=== PATIENT | female | born 1990 | race Caucasian/White ===

== ENCOUNTER 2018-06-10 11:11 | Emergency (ER) | payer OTHER ==
[~2018-06-10] VITALS: Ht 162.6 cm; Wt 55.8 kg
[~2018-06-10 11:11] MED LIST: BUDEPRION SR150 MG; CARBAMAZEPINE100 MG; FAMOTIDINE PO; HYDROXYZINE HCL25 M1 PO; LOESTRIN 24 FE1 EACH; LOXAPINE5 MG PO; PREDNISONE50 MG PO
[2018-06-10 11:33] LABS: URINE BILIRUBIN NEGATIVE (Negative); URINE BLOOD TRACE (Negative); URINE CLARITY CLEAR; URINE COLOR YELLOW; URINE GLUCOSE-RANDOM NEGATIVE (Negative); URINE KETONES NEGATIVE (Negative); URINE LEUKOCYTES-REFLEX NEGATIVE (Negative); URINE NITRITE-REFLEX NEGATIVE (Negative); URINE PROTEIN NEGATIVE (Negative); URINE SPECIFIC GRAVITY <= 1.005 (1.005-1.030); URINE UROBILINOGEN 0.2 E.U./dl (0.2-1.0)
[2018-06-10 11:41] LABS: AMP/METHAMP Negative (Negative); BARBITURATES Negative (Negative); BENZODIAZEPINES Negative (Negative); COCAINE Negative (Negative); METHADONE Negative (Negative); OPIATES Negative (Negative); PCP Negative (Negative); THC Negative (Negative)
[2018-06-10 11:51] LABS: ABSOLUTE BASOPHILS 0.1 thou/uL (0.0-0.2); ABSOLUTE EOSINOPHILS 0.1 thou/uL (0.0-0.7); ABSOLUTE LYMPHOCYTES 1.5 thou/uL (0.8-5.3); ABSOLUTE MONOCYTES 0.4 thou/uL (0.0-1.2); ABSOLUTE NEUTROPHILS 6.2 thou/uL (1.6-8.1); BASOPHILS 0.8 %; HEMATOCRIT 45.8 % (37.0-47.0); HEMOGLOBIN 15.6 gm/dL (12.0-15.0); LYMPHOCYTES 17.7 %; MCH 34.4 pg (26.0-34.0); MONOCYTES 5.4 %; MPV 7.8 fl. (7.2-11.1); NUCLEATED RBCS 0 /100WBC; PLATELET COUNT* 222 thou/uL (150-400); POLYS 75.1 %; RBC 4.53 mil/uL (4.20-5.00); RDW-CV 13.6 % (10.5-14.5); WBC 8.3 thou/uL (4.0-11.0)
[2018-06-10 12:04] LABS: CALCIUM 9.5 mg/dL (8.5-10.1); CREATININE 0.7 mg/dL (0.6-1.3); POTASSIUM 3.1 mmol/L (3.5-5.1)
[2018-06-10 12:08] LABS: ALBUMIN 4.4 g/dL (3.4-5.0); TOTAL BILIRUBIN 0.4 mg/dL (<0.1-1.0); TOTAL PROTEIN 7.9 g/dL (6.4-8.2)
[2018-06-10 12:12] LABS: ALCOHOL 383 mg/dL (<10); SALICYLATE 4.5 mg/dL (2.8-20.0)
[2018-06-10 12:16] LABS: ACETAMINOPHEN < 2 ug/mL (10-30)
[2018-06-10] MEDS ORDERED: ATIVAN1 MG PO (12:25)
[2018-06-10 12:47] VITALS: BP 120/75
== END 2018-06-10 12:47 | disposition home or self-care (01) ==
LOC: M.ERS 11:11
PROVIDERS: Family Medicine
DX: F10.129 Alcohol abuse with intoxication, unspecified (principal); F32.9 Major depressive disorder, single episode, unspecified; F41.9 Anxiety disorder, unspecified; F17.210 Nicotine dependence, cigarettes, uncomplicated; Z88.0 Allergy status to penicillin; Z88.8 Allergy status to other drugs, medicaments and biological substances

== ENCOUNTER 2018-09-09 18:41 | Emergency (ER) | payer OTHER ==
[~2018-09-09] VITALS: Ht 165.1 cm; Wt 54.4 kg
[~2018-09-09 18:41] MED LIST changes: +ATIVAN1 MG PO
[2018-09-09 19:22] LABS: ABSOLUTE EOSINOPHILS 0.1 thou/uL (0.0-0.7); ABSOLUTE MONOCYTES 0.4 thou/uL (0.0-1.2); ABSOLUTE NEUTROPHILS 2.6 thou/uL (1.6-8.1); BASOPHILS 1.1 %; EOSINOPHILS 1.2 %; HEMATOCRIT 41.2 % (37.0-47.0); HEMOGLOBIN 14.2 gm/dL (12.0-15.0); LYMPHOCYTES 24.3 %; MCH 33.8 pg (26.0-34.0); MCHC 34.4 g/dL (28.0-37.0); MCV 98.3 fL (80.0-100.0); MONOCYTES 9.1 %; MPV 7.7 fl. (7.2-11.1); NUCLEATED RBCS 0 /100WBC; PLATELET COUNT* 59 thou/uL (150-400); POLYS 64.3 %; RBC 4.19 mil/uL (4.20-5.00); RDW-CV 13.8 % (10.5-14.5); WBC 4.1 thou/uL (4.0-11.0)
[2018-09-09 19:35] LABS: ALBUMIN 4.2 g/dL (3.4-5.0); ALKALINE PHOSPHATASE 85 U/L (46-116); ANION GAP 16 mmol/L (7-16); BUN 7 mg/dL (7-18); CALCIUM 9.3 mg/dL (8.5-10.1); CHLORIDE 101 mmol/L (98-107); CO2 26 mmol/L (21-32); CREATININE 0.7 mg/dL (0.6-1.3); GLUCOSE 168 mg/dL (70-99); POTASSIUM 3.4 mmol/L (3.5-5.1); SGOT 201 U/L (15-37); SGPT 178 U/L (30-65); SODIUM 143 mmol/L (136-145); TOTAL BILIRUBIN 0.2 mg/dL (<0.1-1.0); TOTAL PROTEIN 7.9 g/dL (6.4-8.2)
[2018-09-09 19:43] LABS: URINE BILIRUBIN NEGATIVE (Negative); URINE BLOOD NEGATIVE (Negative); URINE CLARITY CLEAR; URINE COLOR YELLOW; URINE GLUCOSE-RANDOM NEGATIVE (Negative); URINE KETONES NEGATIVE (Negative); URINE LEUKOCYTES-REFLEX NEGATIVE (Negative); URINE NITRITE-REFLEX NEGATIVE (Negative); URINE PROTEIN TRACE (Negative); URINE UROBILINOGEN 0.2 E.U./dl (0.2-1.0)
[2018-09-09 19:44] LABS: LIPASE 474 U/L (73-393); TROPONIN-I LEVEL <0.06 ng/mL (<0.06)
[2018-09-09 19:50] LABS: AMP/METHAMP Negative (Negative); BARBITURATES Negative (Negative); BENZODIAZEPINES Negative (Negative); COCAINE Negative (Negative); METHADONE Negative (Negative); OPIATES Negative (Negative); PCP Negative (Negative); THC Negative (Negative)
[2018-09-09 21:33] VITALS: BP 149/74
--- NOTE | 2018-09-10 13:11 | EKG ---
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
== END 2018-09-09 21:35 | disposition left against medical advice (07) ==
LOC: M.ERS 18:41
PROVIDERS: Emergency Medicine Emergency Medical Services; Physician Assistant
DX: F10.129 Alcohol abuse with intoxication, unspecified (principal); F32.9 Major depressive disorder, single episode, unspecified; F41.9 Anxiety disorder, unspecified; F17.210 Nicotine dependence, cigarettes, uncomplicated; Z88.0 Allergy status to penicillin; Z88.8 Allergy status to other drugs, medicaments and biological substances

== ENCOUNTER 2018-09-21 02:49 | Inpatient (IN) | payer OTHER ==
[2018-09-21] VITALS (9 sets, daily range): BP systolic 93–144; BP diastolic 51–115
[~2018-09-21] VITALS: Ht 165.1 cm; Wt 57.6 kg
[2018-09-21 03:28] LABS: ABSOLUTE BASOPHILS 0.1 thou/uL (0.0-0.2); ABSOLUTE EOSINOPHILS 0.1 thou/uL (0.0-0.7); ABSOLUTE LYMPHOCYTES 1.2 thou/uL (0.8-5.3); ABSOLUTE MONOCYTES 0.8 thou/uL (0.0-1.2); ABSOLUTE NEUTROPHILS 3.4 thou/uL (1.6-8.1); BASOPHILS 0.9 %; EOSINOPHILS 1.6 %; HEMATOCRIT 40.2 % (37.0-47.0); HEMOGLOBIN 13.5 gm/dL (12.0-15.0); LYMPHOCYTES 22.4 %; MCH 33.6 pg (26.0-34.0); MCHC 33.5 g/dL (28.0-37.0); MCV 100.3 fL (80.0-100.0); MONOCYTES 14.8 %; MPV 8.1 fl. (7.2-11.1); NUCLEATED RBCS 0 /100WBC; PLATELET COUNT* 91 thou/uL (150-400); POLYS 60.3 %; RBC 4.01 mil/uL (4.20-5.00); RDW-CV 14.3 % (10.5-14.5); WBC 5.6 thou/uL (4.0-11.0)
[2018-09-21 03:28] LABS: URINE BILIRUBIN NEGATIVE (Negative); URINE BLOOD 2+ (Negative); URINE CLARITY CLEAR; URINE COLOR YELLOW; URINE GLUCOSE-RANDOM NEGATIVE (Negative); URINE KETONES TRACE (Negative); URINE LEUKOCYTES-REFLEX NEGATIVE (Negative); URINE NITRITE-REFLEX NEGATIVE (Negative); URINE PROTEIN NEGATIVE (Negative); URINE SPECIFIC GRAVITY 1.015 (1.005-1.030); URINE UROBILINOGEN 0.2 E.U./dl (0.2-1.0)
[2018-09-21 03:36] LABS: AMP/METHAMP Negative (Negative); BARBITURATES Negative (Negative); BENZODIAZEPINES Negative (Negative); COCAINE Negative (Negative); METHADONE Negative (Negative); OPIATES Negative (Negative); PCP Negative (Negative); THC Negative (Negative)
[2018-09-21 03:46] LABS: ALBUMIN 3.6 g/dL (3.4-5.0); CALCIUM 9.2 mg/dL (8.5-10.1); CREATININE 0.6 mg/dL (0.6-1.3); MAGNESIUM 1.7 mg/dL (1.8-2.4); POTASSIUM 3.8 mmol/L (3.5-5.1); TOTAL BILIRUBIN 0.4 mg/dL (<0.1-1.0); TOTAL PROTEIN 7.3 g/dL (6.4-8.2); TROPONIN-I LEVEL 0.1 ng/mL (<0.06)
[2018-09-21 03:52] LABS: BACTERIA-REFLEX >30 Many /HPF (None Seen); CASTS None Seen /LPF (None Seen); CRYSTALS None Seen /LPF (None Seen); MUCUS 0-3 Light strn/LPF (None Seen); SQUAMOUS 4-10 Moderate /LPF (0-3); URINE RBC 3-10 Few /HPF (0-2); URINE WBC-REFLEX None Seen /HPF (0-5)
--- NOTE | 2018-09-21 06:32 | NUR ---
PT ARRIVED ON THE UNIT AT 0440 FROM THE ER. PT APPEARS TO BE HALLUCINATING. BEHAVIOR IS VERY BIZARRE. PT IS GETTING ATIVAN FOR ALCOHOL WITHDRAWAL. PT IS IN SINUS RYTHM ON THE TELEMETRY. PT IS RESTING COMFORTABLY IN BED. RESPIRATIONS ARE EVEN AND NONLABORED. WILL CONTINUE TO MONITOR PT.
--- NOTE | 2018-09-21 09:58 | EKG ---
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1990 Requested By: Felisa Bauman Order Number: [id number] MD: Eriberto King Measurements Intervals [place] Rate: 75 P: 57 IA: 128 QRS: 43 QRSD: 90 T: 41 QT: 425 QTc: 475 Interpretive Statements Sinus rhythm RSR' in V1 or V2, probably normal variant Borderline prolonged QT interval Compared to ECG 09/09/2018 19:36:39 no change Electronically Signed On 09-21-2018 9:58:04 CDT by Eriberto King [email or web address] <ELECTRONICALLY SIGNED> By: Eriberto King MD, [facility] 09/21/18 0958 0308 0308 Eriberto King MD, [facility] /EPI
--- NOTE | 2018-09-21 10:36 | NUR ---
ATTEMPTED TO MEET WITH PT, IS IN WITHDRAWL AND RESTLESS. PT'S S/O IS IN ICU AND NOT ABLE TO TALK WITH HIM AT THIS TIME. NO OTHER FAMILY LISTED.
--- NOTE | 2018-09-21 14:55 | 2DMMODE ---
[place] [address] 2 D/M-MODE ECHOCARDIOGRAM Name: BENJAMIN GARCIA Room: [address] IN [facility]#: [id number] Admission: 09/21/18 Attend Phys: Rober Malhotra, Discharge: Date of : 88 Date of Service: 09/21/18 1454 Report #: [id number] THIS REPORT FOR: //name// APPROVED REPORT Study performed: 09/21/2018 13:03:16 EXAM: Comprehensive 2D, Doppler, and color-flow Echocardiogram Patient Location: In-Patient Room #: 230 Status: routine BSA: 1.62 HR: 69 bpm BP: 144/51 mmHg Rhythm: NSR Other Information Study Quality: Good Indications Abnormal ECG alcohol withdrawal 2D Dimensions IVSd: 10.21 (7-11mm) LVOT Diam: 19.81 (18-24mm) LVDd: 44.37 mm PWd: 9.78 (7-11mm) LVDs: 26.60 (25-40mm) Aortic Root: 27.59 mm Volumes Left Atrial Volume (Systole) LA ESV Index: 22.80 mL/m2 Aortic Valve AoV Peak Ezra.: 1.16 m/s AO Peak Gr.: 5.39 mmHg LVOT Max P.93 mmHg AO Mean Gr.: 2.79 mmHg LVOT Mean P.38 mmHg LVOT Max V: 0.86 m/s AO V2 VTI: 23.29 cm LVOT Mean V: 0.53 m/s KAYLAH (VTI): 2.25 cm2 LVOT V1 VTI: 16.98 cm Mitral Valve E/A Ratio: 1.69 MV Decel. Time: 157.47 [place] [address] 2 D/M-MODE ECHOCARDIOGRAM Name: BENJAMIN GARCIA Room: [address] IN ..#: [id number] Admission: 09/21/18 Attend Phys: Rober Malhotra, Discharge: Date of : 88 Date of Service: 09/21/18 1454 Report #: [id number] E Max Ezra.: 0.93 m/s MV PHT: 45.67 ms MVA (PHT): 4.82 cm2 TDI E/Lateral E': 5.81 E/Medial E': 6.20 Medial E' Ezra.: 0.15 m/s Lateral E' Ezra.: 0.16 m/s Left Ventricle The left ventricle is normal size. There is normal LV segmental wall motion. There is normal left ventricular wall thickness. Left ventricular systolic function is normal. The left ventricular ejection fraction is within the normal range. LVEF is 60-65%. This study is not technically sufficient to allow evaluation of the LV diastolic function. Right Ventricle The right ventricle is normal size. The right ventricular systolic function is normal. Atria The left atrium size is normal. The right atrium size is normal. Aortic Valve The aortic valve is normal in structure. No aortic regurgitation is present. There is no aortic valvular stenosis. Mitral Valve The mitral valve is normal in structure. Mild mitral regurgitation. No evidence of mitral valve stenosis. Tricuspid Valve The tricuspid valve is normal in structure. Unable to assess PA pressure. Trace tricuspid regurgitation. Pulmonic Valve The pulmonary valve is normal in structure. Trace pulmonic regurgitation. Great Vessels The aortic root is normal in size. IVC is normal in size and collapses >50% with [place] [address] 2 D/M-MODE ECHOCARDIOGRAM Name: LARRY GARCIASHAKIRA ROJAS Room: [address] IN [facility]#: [id number] Admission: 09/21/18 Attend Phys: Rober Malhotra, Discharge: Date of : 88 Date of Service: 09/21/18 1454 Report #: [id number] There is no pericardial effusion. <Conclusion> Left ventricular systolic function is normal. The left ventricular ejection fraction is within the normal range. <ELECTRONICALLY SIGNED> By: Eriberto King MD, FAC 09/21/18 1454 1454 1454 Eriberto King MD, [facility] /INF
--- NOTE | 2018-09-21 15:21 | NUR ---
PT ALERT WITH ELEVATED CIWA SCORES THIS MORNING (>20). ALL VSS ON ROOM AIR. MD AT BEDSIDE TO ASSESS-ORDERS GIVEN. RESTRAINTS PER PROTOCOL AND 1:1 SITTER AT BEDSIDE. SEVERAL FAMILY MEMBERS VISITIED THIS SHIFT FOR SHORT PERIOD OF TIME. EDUCATED ON SAFETY AND PLAN OF CARE. WILL CONT TO MONITOR
--- NOTE | 2018-09-22 01:40 | NUR ---
PT WANTS TO GO HOME. EXPLAINED TO HER THAT RIGHT NOW SHE CAN NOT BECAUSE OF THE MEDICATION WE GIVEN HER AND SHE CAN TALK TO HER DOCTOR OMAR REGARDING GOING HOME.
[2018-09-22 03:53] VITALS: BP 109/58
[2018-09-22 04:16] LABS: HEMATOCRIT 37.8 % (37.0-47.0); HEMOGLOBIN 12.7 gm/dL (12.0-15.0); MCH 33.9 pg (26.0-34.0); MCHC 33.5 g/dL (28.0-37.0); MPV 8.1 fl. (7.2-11.1); RBC 3.74 mil/uL (4.20-5.00); WBC 4.7 thou/uL (4.0-11.0)
[2018-09-22 04:48] LABS: ALKALINE PHOSPHATASE 85 U/L (46-116); ANION GAP 10 mmol/L (7-16); BUN 5 mg/dL (7-18); CALCIUM 8.1 mg/dL (8.5-10.1); CHLORIDE 107 mmol/L (98-107); CHOLESTEROL 168 mg/dL (<200); CO2 24 mmol/L (21-32); CREATININE 0.5 mg/dL (0.6-1.3); GLUCOSE 97 mg/dL (70-99); HDL CHOLESTEROL 77 mg/dL (>40); LDL CHOLESTEROL 81 mg/dL (<100); LIPASE 508 U/L (73-393); POTASSIUM 4.3 mmol/L (3.5-5.1); SGOT 139 U/L (15-37); SGPT 166 U/L (30-65); SODIUM 141 mmol/L (136-145); TC:HDL 2.2 Ratio (Not establshd); TOTAL BILIRUBIN 0.4 mg/dL (<0.1-1.0); TOTAL PROTEIN 6.2 g/dL (6.4-8.2); TRIGLYCERIDE 52 mg/dL (<150); TROPONIN-I LEVEL <0.06 ng/mL (<0.06); VLDL 10 mg/dL (<40)
[2018-09-22 04:55] LABS: SERUM ASSESSMENT CLEAR
--- NOTE | 2018-09-22 06:10 | NUR ---
PT IS ALWAYS ASKING HER BELONGINGS AND SHE WANTED TO GO HOME. TELE DONT HAVE HER BELONGING IN HER PREVIOUS ROOM AND ALSO SECURITY DONT HAVE IT. TO ASK HER RELATIVE WHERE HER BELONGINGS. PT ASKED IF SHE CAN VISIT HER FIANCE AND EXPLAIN TO HER IT WOULD BE BETTER IF HER FIANCE WILL VISIT HER IN ICU BECAUSE HE IS MORE STABLE. TO ASK ASSISTANCE OR IF THERE IS AVAILABLE TECH TO ACCOMPANY HER FIANCE.
[2018-09-22 07:53] VITALS: BP 117/70
--- NOTE | 2018-09-22 13:11 | CON ---
[address] [address] CONSULTATION Name: BENJAMIN GARCIA Room: [address] ADM IN [facility]#: [id number] Admission: 09/21/18 Attend Phys: Rober Malhotra MD Discharge: Date of : 88 Report #: [id number] THIS REPORT FOR: //name// CC: Rober Malhotra [facility] physician/PCP DATE OF SERVICE: 09/21/2018 HISTORY OF PRESENT ILLNESS: The patient is a 27-year-old white female who I was asked to see in the hospital today after she was noted to have an elevated troponin. No old records are available. There are no family members available. The patient is currently sleeping and has been heavily sedated. She actually came to the Emergency Room here at [facility] in May with intoxication. She had a history of consuming a fifth of liquor every day for several years. She was here again in the Emergency Room 2 weeks ago with abdominal pain. She was worried she was at that time. The patient was brought to the Emergency Room last night at 3:00 in the morning. She had been drinking a pint of whiskey a day, but had not drank for 3 days. She apparently was complaining of hallucinations at night. Apparently, the patient's mother had one month previously and she had been under a lot of stress. The patient had just completed alcohol detox at [facility] in [place] in May. There is no history of heart disease. No history of hypertension, diabetes, hyperlipidemia. She is noted to have an elevated troponin. I was asked to see for further evaluation and treatment. PAST MEDICAL HISTORY: Significant for endometriosis. She has a history of depression. She is on no home medications. ALLERGIES: SHE HAS AN ALLERGY TO PENICILLIN. SOCIAL HISTORY: She is engaged. Her is an alcoholic and actually is in the hospital here at [facility]. She does smoke cigarettes. REVIEW OF SYSTEMS: There is no history of stroke, asthma, peptic ulcer disease, GI bleeding, liver disease, kidney disease, cancer, psychiatric illness other than anxiety. PHYSICAL EXAMINATION: GENERAL: Revealed a young white female who is lying in bed in 4-point restraints. She is unresponsive to voice. VITAL SIGNS: She had a blood pressure of 140/60, pulse 90. She is afebrile. HEENT: She was anicteric, conjunctivae pink. Mucous members moist. NECK: Neck veins do not appear distended. CHEST: Clear to auscultation. CARDIAC: Regular rate without rub or murmur. ABDOMEN: [place] [address] CONSULTATION Name: RADHABENJAMIN Room: [address] ADM IN [facility].R.#: [id number] Admission: 09/21/18 Attend Phys: Rober Malhotra MD Discharge: Date of : 88 Report #: [id number] EXTREMITIES: Had no edema. Posterior tibial pulse 2+ bilaterally. SKIN: Warm, dry. NEUROLOGIC: Nonfocal. LYMPH: No adenopathy. MUSCULOSKELETAL: No joint effusion. Her workup in the Emergency Room today, she had an ECG that showed a sinus rhythm. There were peaked T waves, but no significant ST-segment changes, incomplete right bundle-branch block. Her portable chest x-ray showed poor inspiration, some atelectasis. Previous CT scan of the head done in 2010 after an overdose showed no acute abnormality. LABORATORY WORK: Sodium 142, SGOT 274, lipase 541, alkaline phosphatase is 113, SGPT 221, bilirubin 0.4. Troponin 0.1 on admission, currently less than 0.06. White blood cell count 5.6, hemoglobin 13.5. IMPRESSION AND RECOMMENDATION: 1. Borderline elevation of troponin. No history of chest pain or ECG changes. Suspect noncardiac. Recommend echocardiogram. 2. Alcohol withdrawal. 3. Tobacco abuse. 4. Anxiety disorder. 5. Elevated liver function studies. Suspect hepatitis secondary to alcohol abuse. <ELECTRONICALLY SIGNED> By: Eriberto King MD, [facility] 09/22/18 1311 1221 0152Drosalio King MD, FAC /nt
--- NOTE | 2018-09-22 13:48 | EKG ---
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1990 Requested By: Eriberto King Order Number: [id number] MD: Eriberto King Measurements Intervals [place] Rate: 63 P: 64 [place]: 137 QRS: 48 QRSD: 88 T: 40 QT: 453 QTc: 464 Interpretive Statements Sinus rhythm Compared to ECG 09/21/2018 03:08:04 No significant changes Electronically Signed On 09-22-2018 13:48:25 CDT by Eriberto King [email or web address] <ELECTRONICALLY SIGNED> By: Eriberto King MD, [facility] 09/22/18 1348 0859 0859 Eriberto King MD, [facility] /EPI
--- NOTE | 2018-09-22 14:38 | NUR ---
PT TRANSFERRED TO TELE UNIT AT THIS TIME. ORIENTED TO ROOM. CLWR.
[2018-09-22 15:43] VITALS: BP 114/76
--- NOTE | 2018-09-22 15:46 | NUR ---
PT TRANSFERED FROM ICU AROUND 1430 PT IS ALERT AND ORIENTED X 4 PT DENIES PAIN OR SOA ON RA, PT IS UP AD MCKAY PT IS NOT A FALL RISK, PT IS SR ON THE MONITOR, PT IS CALM AND PLEASANT PT DENIES HALLUCINATIONS AND TRMORS, WILL CONTINUE TO MONITOR
[2018-09-22 19:30] VITALS: BP 109/73
[2018-09-23] VITALS: BP 106/62
--- NOTE | 2018-09-23 02:39 | NUR ---
RECIEVED REPORT AND ASSUMED CARE AT 1900. 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 VITAL SIGNS STABLE. PT IS UP ADLIB. PT DENIES ANY PAIN AT THIS TIME. ASSESSMENT COMPLETED DISCUSSED PLAN OF CARE AND PT UNDERSTANDS. BED LOCKED AND CALL LIGHT WITHIN REACH. FALL PRECAUTIONS IN PLACE. HOURLY ROUNDING DONE AND ALL NEEDS MET. PT WAS VERY SLEEPY AT THE BEGINING OF MY SHIFT AND BARELY WOKE UP WHEN I WAS DOING MY ASSESSMENT OR GIVING MEDS ONLY BARELY WOKE UP TO TAKE HER BED TIME MED. NURSING WILL CONTINUE TO MONITOR.
[2018-09-23 04:00] VITALS: BP 118/76
[2018-09-23 05:08] LABS: HEMOGLOBIN 12.4 gm/dL (12.0-15.0); MCHC 33.6 g/dL (28.0-37.0); MCV 101.3 fL (80.0-100.0); MPV 8.2 fl. (7.2-11.1); RBC 3.65 mil/uL (4.20-5.00); RDW-CV 14.4 % (10.5-14.5); WBC 4.9 thou/uL (4.0-11.0)
[2018-09-23 05:55] LABS: ALKALINE PHOSPHATASE 81 U/L (46-116); ANION GAP 13 mmol/L (7-16); BUN 5 mg/dL (7-18); CALCIUM 8.1 mg/dL (8.5-10.1); CHLORIDE 108 mmol/L (98-107); CO2 22 mmol/L (21-32); CREATININE 0.4 mg/dL (0.6-1.3); GLUCOSE 112 mg/dL (70-99); LIPASE 358 U/L (73-393); POTASSIUM 3.8 mmol/L (3.5-5.1); SGOT 142 U/L (15-37); SGPT 182 U/L (30-65); SODIUM 143 mmol/L (136-145); TOTAL BILIRUBIN 0.3 mg/dL (<0.1-1.0); TOTAL PROTEIN 6.2 g/dL (6.4-8.2); TROPONIN-I LEVEL <0.06 ng/mL (<0.06)
[2018-09-23 09:30] VITALS: BP 120/68
--- NOTE | 2018-09-23 09:51 | NUR ---
ASSUMED PT CARE AT 0700 PT IS ALERT AND ORIENTED X 4 PT DENIES PAIN OR SOA PT STATES " I FEEL FINE" PT IS UP AD MCKAY PT IS NOT A FALL RISK, PT STATES " AFTER I SEE THE DOCTOR I AM LEAVING" PT AGREED TO RECEIVE IV ANTIBIOTIC AND FLUIDS PT FIANCE WHO LEFT YESTERDAY AGAINST MEDICAL ADVICE IS IN ROOM, PT IS SR ON THE MONITOR, PAGED PHYSICIAN AWAITING CALL BACK, WILL CONTINUE TO TR
[2018-09-23] MEDS ORDERED: ATIVAN1 MG PO (10:53)
[2018-09-23] MEDS ORDERED: PRENATAL FORMU1 EAC1 PO (10:54)
[2018-09-23] MEDS ORDERED: KEFLEX500 M2 PO (10:55)
[2018-09-23] MEDS ORDERED: SERTRALINE HCL50 MG PO (10:56)
[2018-09-23] MEDS ORDERED: AUGMENTIN 875-1 EACH PO (10:57)
[2018-09-23 10:58] VITALS: BP 120/68
== END 2018-09-23 11:25 | disposition home or self-care (01) | DRG 442 ==
LOC: M.ERS 02:49 → M.ICU 03:53 → M.TBA-ER 03:53 → M.2W 04:11 → M.ICU 19:25 → M.2W 09-22 14:30
PROVIDERS: Emergency Medicine; Internal Medicine; Internal Medicine Cardiovascular Disease; ADMIT Internal Medicine
DX: B17.9 Acute viral hepatitis, unspecified (principal); F10.230 Alcohol dependence with withdrawal, uncomplicated; G93.40 Encephalopathy, unspecified; F32.9 Major depressive disorder, single episode, unspecified; R31.29 Other microscopic hematuria; F41.0 Panic disorder [episodic paroxysmal anxiety]; F17.210 Nicotine dependence, cigarettes, uncomplicated; Z79.899 Other long term (current) drug therapy; Z88.0 Allergy status to penicillin; Z88.1 Allergy status to other antibiotic agents; Z81.8 Family history of other mental and behavioral disorders; Z83.6 Family history of other diseases of the respiratory system; Z80.3 Family history of malignant neoplasm of breast; Z80.1 Family history of malignant neoplasm of trachea, bronchus and lung; Z84.2 Family history of other diseases of the genitourinary system